=== PATIENT | female | born 1960 | race African-American/Black ===

== ENCOUNTER 2024-01-02 14:04 | Outpatient (CLI) | payer BC | END 2024-01-02 14:05 | disposition home or self-care (01) | LOC: CSHDTY/OP 14:04 | PROVIDERS: ATTEND Nurse Practitioner Family | DX: Z68.38 Body mass index [BMI] 38.0-38.9, adult (principal) | CPT/HCPCS: 97802 ==

== ENCOUNTER 2024-02-09 08:42 | Outpatient (CLI) | payer BC | END 2024-02-09 08:43 | disposition home or self-care (01) | LOC: CSHDTY/OP 08:42 | PROVIDERS: ATTEND Nurse Practitioner Family | DX: Z01.89 Encounter for other specified special examinations (principal); Z68.38 Body mass index [BMI] 38.0-38.9, adult | CPT/HCPCS: 97802 ==

== ENCOUNTER 2024-03-12 09:14 | Outpatient (CLI) | payer BC | END 2024-03-12 09:15 | disposition home or self-care (01) | LOC: CSHDTY/OP 09:14 | PROVIDERS: ATTEND Nurse Practitioner Family | DX: Z68.38 Body mass index [BMI] 38.0-38.9, adult (principal) | CPT/HCPCS: 97802 ==